=== PATIENT | male | born 2000 | race African-American/Black ===

== ENCOUNTER 2018-04-05 06:36 | Emergency (ER) | payer OTHER ==
[~2018-04-05] VITALS: Ht 172.7 cm; Wt 72.6 kg
--- NOTE | 2018-04-05 06:42 | ED CARDIAC/CP/PALPITATIONS ---
History of Present Illness General Chief Complaint: Chest Pain Stated Complaint: CP Source: patient, family, old records, EMS Exam Limitations: no limitations Vital Signs & Intake/Output Vital Signs & Intake/Output Vital Signs Date Time Temp Pulse Resp B/P B/P Pulse O2 O2 Flow FiO2 Mean Ox Delivery Rate 04/05 0821 58 18 122/82 99 Room Air 04/05 0643 97.8 56 18 138/66 100 Room Air Allergies Coded Allergies: NO KNOWN ALLERGIES (10/24/11) Triage Nurses Notes Reviewed? yes HPI: Patient was smoking cannabis last night and decided to go to bed around 3:00 in the morning. As he was climbing into bed he developed a diffuse sharp aching chest pain. The pain is constant. The pain increases with deep breath. There is no radiation outside of his chest. He rates the pain at 8 out of 10. Patient states he feels slightly short of breath secondary to the pain however he agreed shallow then he has no difficulty breathing. He denies any coughing. (Alberto ROBLERO,Andrew Reed) Reconcile Medications Cyclobenzaprine HCl 10 MG TABLET 1 TAB PO TID PRN muscle stain Ibuprofen 600 MG TABLET 1 TAB PO Q6P PRN pain with food (Justin Covington MD) Past History Travel History Traveled to [place] past 21 day No Medical History Any Pertinent Medical History? see below for history Neurological: NONE EENT: allergies Cardiovascular: NONE Respiratory: NONE Gastrointestinal: NONE Hepatic: NONE Renal: NONE Musculoskeletal: NONE Psychiatric: ADHD Endocrine: NONE Blood Disorders: NONE Cancer(s): NONE ALTERATION TAILOR/Reproductive: NONE Surgical History Surgical History: non-contributory Psychosocial History What is your primary language Yakut Tobacco Use: Never used ETOH Use: occasional use Illicit Drug Use: marijuana Family History Hx Contributory? No (Alberto ROBLERO,Andrew Reed) Review of Systems Review of Systems Constitutional: Reports: no symptoms. EENTM: Reports: no symptoms. Respiratory: Reports: no symptoms. Cardiovascular: Reports: see HPI, chest pain. GI: Reports: no symptoms. Genitourinary: Reports: no symptoms. Musculoskeletal: Reports: no symptoms. Skin: Reports: no symptoms. Neurological/Psychological: Reports: no symptoms. Hematologic/Endocrine: Reports: no symptoms. Immunologic/Allergic: Reports: no symptoms. All Other Systems: Reviewed and Negative (Alberto ROBLERO,Andrew Reed) Physical Exam Physical Exam General Appearance: well developed/nourished, alert, awake, anxious, moderate distress Head: atraumatic, normal appearance Eyes: Bilateral: PERRL, EOMI. Ears, Nose, Throat: normal pharynx, normal ENT inspection, hearing grossly normal Neck: normal inspection, supple, full range of motion Respiratory: normal breath sounds, no respiratory distress, lungs clear, TENDERTO PALP Cardiovascular: regular rate/rhythm, normal peripheral pulses Gastrointestinal: normal bowel sounds, soft, non-tender, no organomegaly Back: normal inspection, normal range of motion Extremities: normal inspection, normal capillary refill, normal range of motion, no edema Neurologic/Psych: no motor/sensory deficits, awake, alert, oriented x 3, normal mood/affect Skin: intact, normal color, warm/dry Lymphatic: no anterior cervical [place] Core Measures ACS in differential dx? No CVA/TIA Diagnosis No Sepsis Present: No Sepsis Focused Exam Completed? No (Alberto ROBLERO,Andrew Reed) Progress Differential Diagnosis: costochondritis, musculoskeletal pain, pneumothorax Plan of Care: Orders Procedure Date/time Status EKG 04/05 0638 Active Diagnostic Imaging: Viewed by Me: Radiology Read. Discussed w/RAD: Radiology Read. Initial ED EKG: SR, DIFFUSE ST ELEVATION, NO MN DEPRESSION Prior EKG: unchanged Hand-Off Endorsed To: Justin Covington MD Endorsed Time: 07 Pending: Xray (Alberto ROBLERO,Andrew Reed) CXR Impression: no acute abnormality, no infiltrates, normal size heart, normal mediastinum (Justin Covington MD) Departure Departure Condition: Stable Clinical Impression Primary Impression: Chest wall pain Referrals: Unknown Departure Forms: Customer Survey General Discharge Information (Andrew Dominguez MD) Departure Time of Disposition: 733 Disposition: HOME OR SELF CARE Prescriptions: Current Visit Scripts Ibuprofen 1 TAB PO Q6P PRN pain #50 TAB with food Cyclobenzaprine HCl 1 TAB PO TID PRN muscle stain #30 TAB (Justin Covington MD) Critical Care Note Critical Care Note Critical Care Time: non-applicable (Andrew Dominguez MD)
--- NOTE | 2018-04-05 07:14 | RADIOLOGY REPORT ---
EXAMINATION: XR CHEST CLINICAL INFORMATION: Chest pain COMPARISON: None TECHNIQUE: 2 views of the chest were obtained. FINDINGS: No significant abnormality is noted involving the heart, lungs, mediastinum, bony thorax or soft tissues. IMPRESSION: No acute disease.
[2018-04-05] MEDS ORDERED: IBUPROFEN600 M1 PO (07:34)
[2018-04-05] MEDS ORDERED: CYCLOBENZAPRINE10 M1 PO (07:35)
[2018-04-05 08:21] VITALS: BP 122/82
== END 2018-04-05 08:22 ==
LOC: ERH 06:36
DX: R07.89 Other chest pain (principal)
CPT/HCPCS: 71046; 93005; 93010; 96374; J1885